=== PATIENT | male | born 1935 | race Caucasian/White ===

== ENCOUNTER 2017-01-06 12:05 | Emergency (ER) | payer MEDICARE, MEDICAID ==
[2017-01-06] MEDS ORDERED: SODIUM CHLORIDE 0.9% 1,000 ML IV ONE (12:42)
[2017-01-06] MEDS ORDERED: IOPAMIDOL-300 100 ML VIAL IVP ONE (14:37)
[2017-01-06] MEDS ORDERED: PANTOPRAZOLE 40 MG VIAL IVP STA (15:50)
[2017-01-06] MEDS ORDERED: PANTOPRAZOLE 40 MG VIAL ONE (16:31)
== END 2017-01-06 17:51 | disposition home or self-care (01) ==
DX: K27.9 Peptic ulcer, site unspecified, unspecified as acute or chronic, without hemorrhage or perforation (principal); Z79.82 Long term (current) use of aspirin; I10 Essential (primary) hypertension
CPT/HCPCS: 36415; 74177; 80053; 83690; 85025; 96374; 99283; 99284; Q9967

== ENCOUNTER 2017-01-15 11:35 | Outpatient (CLI) | payer MEDICARE, MEDICAID | END 2017-01-15 11:36 | disposition home or self-care (01) | DX: E87.1 Hypo-osmolality and hyponatremia (principal); D64.9 Anemia, unspecified ==

== ENCOUNTER 2017-02-05 12:26 | Outpatient (CLI) | payer MEDICARE, MEDICAID | END 2017-02-05 12:27 | disposition home or self-care (01) | DX: R05 Cough (principal); R06.00 Dyspnea, unspecified ==

== ENCOUNTER 2017-02-05 13:45 | Emergency (ER) | payer MEDICARE, MEDICAID ==
[2017-02-05] MEDS ORDERED: NITROGLYCERIN 2% PASTE TOP STA (13:57)
[2017-02-05] MEDS ORDERED: FUROSEMIDE 40 MG/4 ML VIAL IVP STA (13:57)
[2017-02-05] MEDS ORDERED: FUROSEMIDE 40 MG/4 ML VIAL ONE (14:09)
[2017-02-05] MEDS ORDERED: NITROGLYCERIN 2% PASTE TOP ONE (14:10)
[2017-02-05] MEDS ORDERED: IOPAMIDOL-300 100 ML VIAL IVP ONE (15:09)
== END 2017-02-05 16:11 | disposition home or self-care (01) ==
DX: I11.0 Hypertensive heart disease with heart failure (principal); I50.9 Heart failure, unspecified; I45.10 Unspecified right bundle-branch block; R94.31 Abnormal electrocardiogram [ECG] [EKG]; D64.9 Anemia, unspecified; I25.10 Atherosclerotic heart disease of native coronary artery without angina pectoris; Z95.1 Presence of aortocoronary bypass graft; Z95.5 Presence of coronary angioplasty implant and graft; I71.4 Abdominal aortic aneurysm, without rupture; I48.91 Unspecified atrial fibrillation; M19.90 Unspecified osteoarthritis, unspecified site
CPT/HCPCS: 36415; 71020; 71275; 80048; 83880; 85025; 85379; 93005; 93010; 96374; 99283; 99285; A9270; Q9967

== ENCOUNTER 2017-02-11 08:00 | Outpatient (CLI) | payer MEDICARE, MEDICAID | END 2017-02-11 08:01 | disposition home or self-care (01) | DX: E87.1 Hypo-osmolality and hyponatremia (principal); I50.9 Heart failure, unspecified; D64.9 Anemia, unspecified ==

== ENCOUNTER 2017-02-21 10:56 | Outpatient (CLI) | payer MEDICARE, MEDICAID | END 2017-02-21 10:57 | disposition home or self-care (01) | DX: I50.9 Heart failure, unspecified (principal); R01.1 Cardiac murmur, unspecified; I51.7 Cardiomegaly; I08.3 Combined rheumatic disorders of mitral, aortic and tricuspid valves ==

== ENCOUNTER 2017-03-04 09:17 | Outpatient (CLI) | payer MEDICARE, MEDICAID | END 2017-03-04 09:18 | disposition home or self-care (01) | DX: I50.9 Heart failure, unspecified (principal); E87.1 Hypo-osmolality and hyponatremia; D64.9 Anemia, unspecified ==

== ENCOUNTER 2017-03-12 14:38 | Outpatient (CLI) | payer MEDICARE, MEDICAID | END 2017-03-12 14:39 | disposition home or self-care (01) | DX: D64.9 Anemia, unspecified (principal) ==

== ENCOUNTER 2017-04-09 09:52 | Outpatient (CLI) | payer MEDICARE, MEDICAID | END 2017-04-09 09:53 | disposition home or self-care (01) | DX: I10 Essential (primary) hypertension (principal); E78.2 Mixed hyperlipidemia; Z79.899 Other long term (current) drug therapy; I25.10 Atherosclerotic heart disease of native coronary artery without angina pectoris ==

== ENCOUNTER 2017-04-10 10:38 | Emergency (ER) | payer MEDICARE, MEDICAID ==
[2017-04-10] MEDS ORDERED: METOPROLOL 5 MG/5 ML VIAL IVP STA (10:53)
--- NOTE | 2017-04-10 10:57 | ED Physician Documentation ---
PD HPI DYSPNEA - Stated complaint Stated Complaint: ABN EKG - Chief complaint Chief Complaint: Cardiac - History obtained from History obtained from: Patient, Caregiver, Other (PMD) - History of Present Illness Timing - onset: How many days ago (several) Timing - details: Waxing and waning Associated symptoms: No: Fever, Cough, Chest pain / discomfort Similar symptoms before: Has not had sx before Recently seen: Clinic (Was sent here from Dr. Hinton's office.) - Additional information Additional information: The patient is an 81-year-old male with a history of coronary artery disease and congestive heart failure, who was sent here from Dr. Hinton's office where he presented this morning with dyspnea, and was found to be in new onset atrial fibrillation/flutter. He had cough last week but not this week. He denies any chest pain, nausea, vomiting, or fever. He takes one baby aspirin daily. Review of Systems Constitutional: reports: Fatigue. denies: Fever Ears: denies: Tinnitus/ringing Nose: denies: Congestion Throat: denies: Sore throat Cardiac: denies: Chest pain / pressure Respiratory: reports: Dyspnea. denies: Cough GI: denies: Abdominal Pain, Nausea, Vomiting : denies: Dysuria Skin: denies: Rash Musculoskeletal: denies: Extremity swelling Neurologic: reports: Generalized weakness. denies: Focal weakness, Numbness, Headache PD PAST MEDICAL HISTORY - Past Medical History Cardiovascular: Congestive heart failure, Hypertension, Coronary artery disease , Atrial flutter, Other Respiratory: None Neuro: None Endocrine/Autoimmune: None Psych: Depression Musculoskeletal: Osteoarthritis Other Past Medical History: Illiterate - Past Surgical History Past Surgical History: Yes General: Other Ortho: Hip replacement Cardiovascular: CABG, Coronary stent, AAA - Present Medications Home Medications: Ambulatory Orders Medication Instructions Recorded Confirmed Multivit-Minerals/FA/Lycopene [One 1 each PO DAILY 10/31/14 04/10/17 Daily For Men Tablet] Paroxetine HCl 40 mg PO QPM 10/31/14 04/10/17 Pravastatin Sodium 80 mg PO QPM 10/31/14 04/10/17 Omeprazole [PriLOSEC] 20 mg PO DAILY #14 capsule 01/06/17 04/10/17 Furosemide [Lasix] 40 mg PO DAILY #7 tablet 02/05/17 04/10/17 Aspirin 81 mg QPM 04/10/17 04/10/17 Ferrous Gluconate 1 tab DAILY 04/10/17 04/10/17 Losartan [Cozaar] 50 mg DAILY 04/10/17 04/10/17 Metoprolol Tartrate 75 mg BID 04/10/17 04/10/17 Potassium Chloride 40 meq PO DAILY 04/10/17 04/10/17 Tamsulosin HCl [Flomax] 1 tab QPM 04/10/17 04/10/17 - Allergies Allergies/Adverse Reactions: Allergies Allergy/AdvReac Type Severity Reaction Status Date / Time Lisinopril AdvReac Unknown Unknown Uncoded 02/03/15 11:53 - Living Situation Living Arrangement: reports: At home - Social History Does the pt smoke?: No Smoking Status: Never smoker Does the pt drink ETOH?: No Does the pt have substance abuse?: No - Immunizations Immunizations are current?: Yes - POLST Patient has POLST: No PD ED PE NORMAL - Vitals Vital signs reviewed: Yes (hypertensive and mildly tachycardic.) - General General: Alert and oriented X 3, Well developed/nourished - HEENT HEENT: Atraumatic, EOMI, Pharynx benign - Neck Neck: Supple, no meningeal sign, No adenopathy, No JVD - Cardiac Cardiac: Other (Rapid rate, regular rhythm, with 2/6 systolic murmur.) - Respiratory Respiratory: Clear bilaterally, Other (Well-healed surgical abdominal scars.) - Abdomen Abdomen: Soft, Non tender - Back Back: No CVA TTP - Derm Derm: No rash - Extremities Extremities: No calf tenderness / cord, Other (Trace pedal edema.) - Neuro Neuro: Alert and oriented X 3, No motor deficit Results - Vitals Vitals: Oxygen O2 Source [] Room air O2 Source [] Room air O2 Source Room air - EKG (time done) 13:25 Rate: Rate (enter#) (99) Rhythm: Atrial flutter [place]: Normal QRS: Normal Ischemia: Normal ST segments Computer interpretation: Agree with computer 14:43 Rate: Rate (enter#) (49) Rhythm: Sinus bradycardia [place]: Normal Intervals: Normal [place] QRS: Normal Ischemia: Normal ST segments Compare to prior EKG: Changed from prior EKG (No longer in atrial flutter.) Computer interpretation: Agree with computer - Labs Labs: Laboratory Tests 04/10/17 04/10/17 04/10/17 11:05 11:05 11:05 WBC 5.2 RBC 3.65 L Hgb 9.9 L Hct 30.1 L MCV 82.4 MCH 27.3 MCHC 33.1 RDW 20.9 H Plt Count 176 MPV 7.5 Neut # 3.6 Lymph # 0.9 L [place] # 0.5 Eos # 0.1 Baso # 0.0 Absolute Nucleated RBC 0.00 Nucleated RBCs 0.0 Manual Slide Review Indicated Platelet Estimate NORMAL (130-450,000) Platelet Morphology NORMAL APPEARANCE RBC Morph Micro Appear 1+ OVALOCYTES Sodium 132 L Potassium 4.2 Chloride 95 L Carbon Dioxide 27 Anion Gap 10.0 BUN 26 H Creatinine 1.1 Estimated GFR (MDRD) 64 L Glucose 123 H Calcium 8.9 Total Bilirubin 0.8 AST 22 ALT 18 Alkaline Phosphatase 63 Troponin I < 0.04 Total Protein 7.0 Albumin 4.3 Globulin 2.7 Albumin/Globulin Ratio 1.6 Lipase 23 TSH 04/10/17 11:05 WBC RBC Hgb Hct MCV MCH MCHC RDW Plt Count MPV Neut # Lymph # [place] # Eos # Baso # Absolute Nucleated RBC Nucleated RBCs Manual Slide Review Platelet Estimate Platelet Morphology RBC Morph Micro Appear Sodium Potassium Chloride Carbon Dioxide Anion Gap BUN Creatinine Estimated GFR (MDRD) Glucose Calcium Total Bilirubin AST ALT Alkaline Phosphatase Troponin I Total Protein Albumin Globulin Albumin/Globulin Ratio Lipase TSH 1.28 - Rads (name of study) Portable CXR Radiology: Prelim report reviewed, EMP read contemporaneously, See rad report ( Minimally irregular opacities is in the left lung base and small left-sided pleural effusion.) Procedures - Cardioversion 1 Indication: Tachyarrhythmia Risks, benefits, alternatives explained to: Pt, POA Prep: IV, O2, rehab director, Pulse ox, Airway equip Meds: Propofol (70 mg), Versed (1 mg) CS via: Pads, AP approach Sync: Biphasic, 200j Post cardioversion rhythm: NSR Performed by: ED PD MEDICAL DECISION MAKING - ED course Complexity details: reviewed old records, reviewed results, re-evaluated patient , considered differential, d/w patient, d/w family, d/w PMD ED course: The patient's presentation is significant for new onset atrial flutter with 2:1 block. There is no clinical evidence to suggest myocardial ischemia, and his TSH is in the normal range at 1.28. Treatment in the emergency department included administration of metoprolol 5 mg IV. This did not change his rhythm. I discussed with him risks and benefits of cardioversion. He requested that I consult his sister who is his power of ruby rails developer. I discussed risks and benefits with her by telephone. He subsequently agreed with the proposed treatment. Following sedation with 1 mg Versed IV and 70 mg propofol IV, he underwent synchronized cardioversion at 200 J, which resulted in conversion to sinus bradycardia in the 50s. Repeat electrocardiogram reveals no evidence of myocardial ischemia on the tracing. He felt subjectively much improved following the treatment. I discussed with him and his caregiver the diagnosis, the importance of outpatient follow-up, as well as potentially worrisome signs or symptoms that should prompt reevaluation in the emergency department. Departure - Departure Disposition: 01 Home, Self Care Clinical Impression: Atrial flutter Condition: Stable Instructions: ED Paroxysmal Atrial Flutter Follow-Up: Will Hinton MD [Primary Care Provider] - Comments: Take one aspirin daily. Continue your medications as previously prescribed. Followup with your primary physician within one to 2 weeks. Call to schedule an appointment. Return to the emergency department if you develop recurrent fast heart rate, shortness of breath, or otherwise worsening symptoms. Discharge Date/Time: 04/10/17 15:55
[2017-04-10] MEDS ORDERED: METOPROLOL 5 MG/5 ML VIAL IVP ONE (11:12)
[2017-04-10 11:25] LABS: BASOPHILS % (AUTO) 0.5 %; EOSINOPHILS # (AUTO) 0.1 10^3/uL (0.0-0.7); EOSINOPHILS % (AUTO) 2.7 %; HCT - HEMATOCRIT 30.1 % (42.0-52.0); HGB - HEMOGLOBIN 9.9 g/dL (14.0-18.0); LYMPHOCYTES # (AUTO) 0.9 10^3/uL (1.5-3.5); LYMPHOCYTES % (AUTO) 17.5 %; MEAN CORPUSCULAR HEMOGLOBIN 27.3 pg (27.0-31.0); MEAN CORPUSCULAR HGB CONC 33.1 g/dL (32.0-36.0); MEAN CORPUSCULAR VOLUME 82.4 fL (80.0-94.0); MEAN PLATELET VOLUME 7.5 fL (7.4-11.4); MONOCYTES # (AUTO) 0.5 10^3/uL (0.0-1.0); MONOCYTES % (AUTO) 9.7 %; NEUTROPHILS # (AUTO) 3.6 10^3/uL (1.5-6.6); NEUTROPHILS % (AUTO) 69.6 %; RED BLOOD COUNT 3.65 10^6/uL (4.70-6.10); RED CELL DISTRIBUTION WIDTH 20.9 % (12.0-15.0); UNCORRECTED WHITE BLOOD COUNT 5.2 x10^3/uL; WHITE BLOOD COUNT 5.2 x10^3/uL (4.8-10.8)
[2017-04-10 11:33] LABS: ALBUMIN/GLOBULIN RATIO 1.6 (1.0-2.2); BILIRUBIN,TOTAL 0.8 mg/dL (0.2-1.0); CALCIUM 8.9 mg/dL (8.5-10.3); CREATININE 1.1 mg/dL (0.6-1.2); POTASSIUM 4.2 mmol/L (3.5-5.0)
[2017-04-10 11:52] LABS: PLATELET ESTIMATE, MANUAL NORMAL (130-450,000) (NORMAL); PLATELET MORPHOLOGY NORMAL APPEARANCE (NORMAL)
[2017-04-10] MEDS ORDERED: MIDAZOLAM 2 MG/2 ML VIAL IVP STA (14:12)
[2017-04-10] MEDS ORDERED: PROPOFOL 200 MG/20 ML VIAL IVP STA (14:12)
--- NOTE | 2017-04-10 14:12 | XRAY Preliminary Report ---
Exam: XR Chest 1 View IMPRESSION: Minimally irregular opacities in left lung base and small left sided pleural effusion. [facility] SITE ID: [id number]
--- NOTE | 2017-04-10 14:15 | XRAY Report ---
EXAM: CHEST RADIOGRAPHY EXAM DATE: 04/10/2017 01:52 PM. CLINICAL HISTORY: Dyspnea. COMPARISON: None. TECHNIQUE: 1 view. FINDINGS: Lungs/Pleura: Several irregular opacities in left lung base is small left-sided pleural effusion. No pneumothorax. Mediastinum: The patient is status post median sternotomy and CABG. Left heart border silhouetted by the adjacent airspace process. The pulmonary vasculature is within normal limits. Other: None. IMPRESSION: Minimally irregular opacities in left lung base and small left sided pleural effusion. [facility] Referring Provider Line: [phone] SITE ID: [id number]
[2017-04-10] MEDS ORDERED: MIDAZOLAM 2 MG/2 ML VIAL ONE (14:16)
[2017-04-10] MEDS ORDERED: PROPOFOL 200 MG/20 ML VIAL IVP ONE (14:17)
[2017-04-10] MEDS ORDERED: SODIUM CHLORIDE 0.9% 1,000 ML IV ONE (14:49)
[2017-04-10 15:04] VITALS: BP 126/52
== END 2017-04-10 15:55 | disposition home or self-care (01) ==
LOC: ED 10:38
DX: I48.92 Unspecified atrial flutter (principal); I45.10 Unspecified right bundle-branch block; R94.31 Abnormal electrocardiogram [ECG] [EKG]; I11.0 Hypertensive heart disease with heart failure; I50.9 Heart failure, unspecified; I25.10 Atherosclerotic heart disease of native coronary artery without angina pectoris; M19.90 Unspecified osteoarthritis, unspecified site; Z79.82 Long term (current) use of aspirin
CPT/HCPCS: 36415; 71010; 80053; 83690; 84443; 84484; 85025; 92960; 93005; 93010; 96374; 96375; 99152; 99284

== ENCOUNTER 2018-01-26 08:00 | Outpatient (CLI) | payer MEDICARE, MEDICAID ==
[2018-01-26 18:19] LABS: CALCIUM 8.5 mg/dL (8.5-10.3); CREATININE 1.1 mg/dL (0.6-1.2)
== END 2018-01-26 08:01 | disposition home or self-care (01) ==
LOC: LAB.R 08:00
PROVIDERS: ATTEND Internal Medicine
DX: I50.9 Heart failure, unspecified (principal)
CPT/HCPCS: 80048; 83880

== ENCOUNTER 2018-01-30 12:39 | Outpatient (CLI) | payer MEDICARE, MEDICAID | END 2018-01-30 12:40 | disposition home or self-care (01) | LOC: DI 12:39 | PROVIDERS: ATTEND Internal Medicine | DX: I50.9 Heart failure, unspecified (principal); I08.3 Combined rheumatic disorders of mitral, aortic and tricuspid valves; I27.20 Pulmonary hypertension, unspecified | CPT/HCPCS: 93306 ==

== ENCOUNTER 2018-02-13 08:00 | Outpatient (CLI) | payer MEDICARE, MEDICAID ==
[2018-02-13 13:26] LABS: CREATININE 0.9 mg/dL (0.6-1.2)
== END 2018-02-13 08:01 | disposition home or self-care (01) ==
LOC: LAB.R 08:00
PROVIDERS: ATTEND Internal Medicine
DX: I50.9 Heart failure, unspecified (principal)
CPT/HCPCS: 80048

== ENCOUNTER 2018-05-13 08:00 | Outpatient (CLI) | payer MEDICARE, MEDICAID ==
[2018-05-13 12:32] LABS: BASOPHILS % (AUTO) 0.4 %; EOSINOPHILS # (AUTO) 0.2 10^3/uL (0.0-0.7); EOSINOPHILS % (AUTO) 3.3 %; HGB - HEMOGLOBIN 11.8 g/dL (14.0-18.0); LYMPHOCYTES # (AUTO) 0.9 10^3/uL (1.5-3.5); LYMPHOCYTES % (AUTO) 16.3 %; MEAN CORPUSCULAR HEMOGLOBIN 34.1 pg (27.0-31.0); MEAN CORPUSCULAR VOLUME 100.5 fL (80.0-94.0); MEAN PLATELET VOLUME 8.5 fL (7.4-11.4); MONOCYTES # (AUTO) 0.3 10^3/uL (0.0-1.0); MONOCYTES % (AUTO) 6.2 %; NEUTROPHILS # (AUTO) 4.2 10^3/uL (1.5-6.6); NEUTROPHILS % (AUTO) 73.8 %; PLT - PLATELET COUNT 161 10^3/uL (130-450); RED BLOOD COUNT 3.45 10^6/uL (4.70-6.10); WHITE BLOOD COUNT 5.6 x10^3/uL (4.8-10.8)
[2018-05-13 12:42] LABS: ALBUMIN 3.8 g/dL (3.2-5.5); ALBUMIN/GLOBULIN RATIO 1.1 (1.0-2.2); ALKALINE PHOSPHATASE 53 IU/L (42-121); ALT ALANINE AMINOTRANSFERASE 16 IU/L (10-60); AST ASPARTATE AMINOTRANSFERASE 21 IU/L (10-42); BILIRUBIN,TOTAL 1.1 mg/dL (0.2-1.0); BUN - BLOOD UREA NITROGEN 22 mg/dL (6-20); CALCIUM 8.7 mg/dL (8.5-10.3); CARBON DIOXIDE - CO2 29 mmol/L (21-32); CHLORIDE 100 mmol/L (101-111); CHOL/HDL RATIO 3.7 (<5.0); CHOLESTEROL 134 mg/dL; GFR - MDRD 71 (>89); GLUCOSE 131 mg/dL (70-100); HDL CHOLESTEROL 36 mg/dL; LDL CHOLESTEROL,CALCULATED 77 mg/dL; LDL/HDL RATIO 2.1 (<3.6); SODIUM 137 mmol/L (135-145); TOTAL PROTEIN 7.4 g/dL (6.7-8.2); VLDL CHOLESTEROL 21 mg/dL
== END 2018-05-13 08:01 ==
LOC: LAB.N 08:00
PROVIDERS: ATTEND Internal Medicine
DX: I50.9 Heart failure, unspecified (principal); I25.10 Atherosclerotic heart disease of native coronary artery without angina pectoris; E78.5 Hyperlipidemia, unspecified; I10 Essential (primary) hypertension
CPT/HCPCS: 36415; 80053; 80061; 83721; 84443; 85025

== ENCOUNTER 2018-05-19 12:40 | Outpatient (CLI) | payer MEDICARE, MEDICAID | END 2018-05-19 12:41 | disposition home or self-care (01) | LOC: DI 12:40 | PROVIDERS: ATTEND Internal Medicine | DX: I48.91 Unspecified atrial fibrillation (principal); I08.3 Combined rheumatic disorders of mitral, aortic and tricuspid valves; I27.20 Pulmonary hypertension, unspecified | CPT/HCPCS: 93306 ==

== ENCOUNTER 2018-07-06 15:03 | Outpatient (CLI) | payer MEDICARE, MEDICAID ==
[2018-07-06 13:16] LABS: CALCIUM 9.1 mg/dL (8.5-10.3); CREATININE 1.1 mg/dL (0.6-1.2)
== END 2018-07-06 15:04 | disposition home or self-care (01) ==
LOC: LAB.N 15:03
PROVIDERS: ATTEND Internal Medicine
DX: I50.9 Heart failure, unspecified (principal)
CPT/HCPCS: 36415; 80048; 83880

== ENCOUNTER 2019-01-12 08:00 | Outpatient (CLI) | payer MEDICARE, MEDICAID ==
[2019-01-12 14:06] LABS: CREATININE 1.5 mg/dL (0.6-1.2)
== END 2019-01-12 23:59 | disposition home or self-care (01) ==
LOC: LAB.R 08:00
PROVIDERS: ATTEND Internal Medicine
DX: I50.9 Heart failure, unspecified (principal)
CPT/HCPCS: 80048

== ENCOUNTER 2019-05-25 13:27 | Outpatient (CLI) | payer MEDICARE, MEDICAID ==
[2019-05-25 13:26] LABS: BASOPHILS % (AUTO) 0.2 %; EOSINOPHILS # (AUTO) 0.1 10^3/uL (0.0-0.7); EOSINOPHILS % (AUTO) 2.8 %; HGB - HEMOGLOBIN 8.4 g/dL (14.0-18.0); LYMPHOCYTES # (AUTO) 0.8 10^3/uL (1.5-3.5); LYMPHOCYTES % (AUTO) 17.5 %; MEAN CORPUSCULAR HEMOGLOBIN 30.8 pg (27.0-31.0); MEAN CORPUSCULAR HGB CONC 31.1 g/dL (32.0-36.0); MEAN CORPUSCULAR VOLUME 98.9 fL (80.0-94.0); MEAN PLATELET VOLUME 9.3 fL (7.4-11.4); MONOCYTES # (AUTO) 0.4 10^3/uL (0.0-1.0); MONOCYTES % (AUTO) 9.3 %; NEUTROPHILS # (AUTO) 3.2 10^3/uL (1.5-6.6); NEUTROPHILS % (AUTO) 69.8 %; PLT - PLATELET COUNT 148 10^3/uL (130-450); RED BLOOD COUNT 2.73 10^6/uL (4.70-6.10); RED CELL DISTRIBUTION WIDTH 17.4 % (12.0-15.0); WHITE BLOOD COUNT 4.6 x10^3/uL (4.8-10.8)
[2019-05-25 13:35] LABS: CALCIUM 8.1 mg/dL (8.5-10.3); CREATININE 1.5 mg/dL (0.6-1.2)
[2019-05-25 13:51] LABS: T4 (THYROXINE) 7.64 ug/dL (6.09-12.23)
[2019-05-25 13:56] LABS: THYROID STIMULATING HORMONE 1.97 uIU/mL (0.34-5.60)
--- NOTE | 2019-05-25 16:47 | XRAY Report ---
Reason: CHF, A-Fib Procedure Date: 05/25/2019 Accession Number: [id number] / [id number] Procedure: XR - Chest 1 View X-Ray CPT Code: 28708 FULL RESULT: EXAM: CHEST RADIOGRAPHY EXAM DATE: 05/25/2019 01:57 PM. CLINICAL HISTORY: CHF, A-Fib. Difficulty breathing COMPARISON: 05/04/2014 and 02/05/2017. TECHNIQUE: 1 view. FINDINGS: Lungs/Pleura: Chronic left lateral whole home pleural thickening and CP angle blunting, likely chronic scarring. No right effusion. No pneumothorax. Minor chronic increased retrocardiac density. Lungs otherwise clear. Mediastinum: Status post sternotomy and coronary artery bypass graft with normal heart size. Other: Suspect aortic graft upper abdomen. Mild degenerative change in the spine. IMPRESSION: No acute findings. Similar in appearance to 02/05/2017. [facility]
== END 2019-05-25 13:28 | disposition home or self-care (01) ==
LOC: DI 13:27
PROVIDERS: ATTEND Family Medicine
DX: I50.9 Heart failure, unspecified (principal); I48.91 Unspecified atrial fibrillation; I35.0 Nonrheumatic aortic (valve) stenosis; I27.20 Pulmonary hypertension, unspecified
CPT/HCPCS: 36415; 71045; 80048; 83880; 84436; 84443; 84481; 85025

== ENCOUNTER 2019-05-26 09:05 | Outpatient (CLI) | payer MEDICARE, MEDICAID | END 2019-05-26 09:06 | disposition short-term general hospital (02) | LOC: EMS 09:05 | PROVIDERS: ATTEND Surgery | DX: S09.90XA Unspecified injury of head, initial encounter (principal); R10.9 Unspecified abdominal pain; R53.1 Weakness; W01.10XA Fall on same level from slipping, tripping and stumbling with subsequent striking against unspecified object, initial encounter; Y92.003 Bedroom of unspecified non-institutional (private) residence as the place of occurrence of the external cause | CPT/HCPCS: A0425; A0429 ==

== ENCOUNTER 2019-06-02 01:12 | Outpatient (CLI) | payer MEDICARE, MEDICAID | END 2019-06-02 01:13 | disposition EMS.NT | LOC: EMS 01:12 | PROVIDERS: ATTEND Surgery | DX: R29.6 Repeated falls (principal) ==

== ENCOUNTER 2019-06-16 06:47 | Outpatient (CLI) | payer MEDICARE, MEDICAID | END 2019-06-16 06:48 | disposition critical access hospital (66) | LOC: EMS 06:47 | PROVIDERS: ATTEND Surgery | DX: S09.90XA Unspecified injury of head, initial encounter (principal); W06.XXXA Fall from bed, initial encounter; Y92.003 Bedroom of unspecified non-institutional (private) residence as the place of occurrence of the external cause; Z79.01 Long term (current) use of anticoagulants | CPT/HCPCS: A0425; A0429 ==

== ENCOUNTER 2019-06-16 07:14 | Emergency (ER) | payer MEDICARE, MEDICAID ==
--- NOTE | 2019-06-16 07:24 | ED Physician Documentation ---
History of Present Illness - Stated complaint Stated Complaint: GLF - History obtained from History obtained from: Patient - History of Present Illness Timing: Prior to arrival - Additonal information Additional information: Patient is an 83-year-old male with anticoagulation of Xarelto presenting from home after his caregiver found him on the ground. It is unsure how long he was there. Patient reports that he fell out of bed last night, but denies any injuries including headache, neck pain, back pain, chest pain, difficulty breathing, abdominal pain, nausea, vomiting, urinary changes or stool changes. Patient reports that he was otherwise at his normal state of health. No other improving or worsening factors. Review of Systems Cardiac: denies: Chest pain / pressure Respiratory: denies: Dyspnea GI: denies: Abdominal Pain, Nausea, Vomiting, Diarrhea : denies: Dysuria Skin: reports: Abrasion (s) Musculoskeletal: denies: Neck pain, Back pain, Extremity pain Neurologic: denies: Focal weakness, Numbness, Headache, Head injury PD PAST MEDICAL HISTORY - Past Medical History Past Medical History: Yes Cardiovascular: Congestive heart failure, Hypertension, Coronary artery disease, Atrial flutter, Other Respiratory: None Endocrine/Autoimmune: None Psych: Depression Musculoskeletal: Osteoarthritis - Past Surgical History Past Surgical History: Yes General: Other Ortho: Hip replacement Cardiovascular: CABG, Coronary stent, AAA - Present Medications Home Medications: Ambulatory Orders Medication Instructions Recorded Confirmed Multivit-Minerals/FA/Lycopene [One 1 each PO DAILY 10/31/14 04/10/17 Daily For Men Tablet] PARoxetine HCl [Paroxetine HCl] 40 mg PO QPM 10/31/14 04/10/17 Pravastatin Sodium 80 mg PO QPM 10/31/14 04/10/17 Omeprazole [PriLOSEC] 20 mg PO DAILY #14 capsule 01/06/17 04/10/17 Losartan [Cozaar] 50 mg DAILY 04/10/17 04/10/17 Metoprolol Tartrate 75 mg BID 04/10/17 04/10/17 Potassium Chloride 40 meq PO DAILY 04/10/17 04/10/17 Tamsulosin HCl [Flomax] 1 tab QPM 04/10/17 04/10/17 Azithromycin 250 mg PO DAILY #4 tablet 06/16/19 Diltiazem HCl [Dilt-Xr] 120 mg PO 06/16/19 Liothyronine Sodium 5 mcg PO 06/16/19 06/16/19 Rivaroxaban [Xarelto] 20 mg PO 06/16/19 06/16/19 Torsemide 20 mg PO DAILY 06/16/19 06/16/19 - Allergies Allergies/Adverse Reactions: Allergies Allergy/AdvReac Type Severity Reaction Status Date / Time Lisinopril AdvReac Unknown Unknown Uncoded 06/16/19 07:21 - Social History Does the pt smoke?: No Smoking Status: Never smoker Does the pt drink ETOH?: No Does the pt have substance abuse?: No - Immunizations Immunizations are current?: Yes - POLST Patient has POLST: No PD ED PE NORMAL - Vitals Vital signs reviewed: Yes - General General: Alert and oriented X 3, No acute distress, Well developed/nourished - HEENT HEENT: Atraumatic, PERRL, EOMI, Moist mucous membranes, Pharynx benign. No: Dentition benign (No teeth in place) - Neck Neck: No bony TTP (C collar in place) - Cardiac Cardiac: RRR, No murmur - Respiratory Respiratory: No respiratory distress, Clear bilaterally - Abdomen Abdomen: Normal bowel sounds, Soft, Non tender, Non distended - Back Back: No spinal TTP - Derm Derm: Warm and dry, No rash, Other (Multiple scattered bruises of variable age over extremities and directly below the left eye. Areas of weeping to bilateral shins with 1+ pedal edema) - Extremities Extremities: No deformity, No tenderness to palpate. No: No edema - Neuro Neuro: Alert and oriented X 3, No motor deficit, No sensory deficit - Psych Psych: Normal mood, Normal affect Results - Vitals Vitals: Vital Signs - 24 hr 06/16/19 06/16/19 07:18 09:21 Temperature 35.6 C L Heart Rate 100 96 Respiratory 18 17 Rate Blood Pressure 122/84 H 128/91 H O2 Saturation 92 96 Oxygen O2 Source [] Room air O2 Source [] Room air O2 Source Room air - EKG (time done) 0746 Rate: Rate (enter#) (99) Rhythm: Atrial fibrillation Intervals: Prolonged QT, RBBB Compare to prior EKG: Unchanged from prior EKG - Labs Labs: Laboratory Tests 06/16/19 06/16/19 06/16/19 07:24 07:24 07:24 WBC 4.9 RBC 2.62 L Hgb 7.9 L Hct 26.0 L MCV 99.2 H MCH 30.2 MCHC 30.4 L RDW 17.3 H Plt Count 142 MPV 9.6 Neut # (Auto) 3.8 Lymph # (Auto) 0.6 L [place] # (Auto) 0.4 Eos # (Auto) 0.1 Baso # (Auto) 0.0 Absolute Nucleated RBC 0.00 Nucleated RBC % 0.0 Sodium 139 Potassium 4.6 Chloride 102 Carbon Dioxide 23 Anion Gap 14.0 H BUN 29 H Creatinine 1.4 H Estimated GFR (MDRD) 48 L Glucose 139 H Calcium 8.5 Total Bilirubin 1.1 H AST 27 ALT 21 Alkaline Phosphatase 88 Total Creatine Kinase 91 Troponin I < 0.04 Troponin I High Sens 10.7 Total Protein 6.9 Albumin 3.5 Globulin 3.4 Albumin/Globulin Ratio 1.0 Lipase 26 Urine Color Urine Clarity Urine pH Ur Specific [place] Urine Protein Urine Glucose (UA) Urine Ketones Urine Occult Blood Urine Nitrite Urine Bilirubin Urine Urobilinogen Ur Leukocyte Esterase Ur Microscopic Review Urine Culture Comments 06/16/19 10:55 WBC RBC Hgb Hct MCV MCH MCHC RDW Plt Count MPV Neut # (Auto) Lymph # (Auto) [place] # (Auto) Eos # (Auto) Baso # (Auto) Absolute Nucleated RBC Nucleated RBC % Sodium Potassium Chloride Carbon Dioxide Anion Gap BUN Creatinine Estimated GFR (MDRD) Glucose Calcium Total Bilirubin AST ALT Alkaline Phosphatase Total Creatine Kinase Troponin I Troponin I High Sens Total Protein Albumin Globulin Albumin/Globulin Ratio Lipase Urine Color DARK YELLOW Urine Clarity CLEAR Urine pH 6.0 Ur Specific [place] 1.010 Urine Protein NEGATIVE Urine Glucose (UA) NEGATIVE Urine Ketones NEGATIVE Urine Occult Blood NEGATIVE Urine Nitrite NEGATIVE Urine Bilirubin NEGATIVE Urine Urobilinogen 1 (NORMAL) Ur Leukocyte Esterase NEGATIVE Ur Microscopic Review NOT INDICATED Urine Culture Comments NOT INDICATED PD MEDICAL DECISION MAKING - ED course Complexity details: reviewed results, re-evaluated patient, considered differential, d/w patient ED course: Patient presenting after being found down by his caregiver. Patient does report fall, but denies particular injury or complaint. Patient has multiple areas of ecchymosis over his body and face that are of variable age. Patient does admit to recurrent falls. No obvious signs of new trauma from today, as well as any changes in neurological deficits or systemic illness. Imaging obtained of head and cervical spine, as well as chest x-ray. Imaging returned without obvious acute findings except for possible pneumonia and mild compression fracture of T3, however, patient has had recurrent falls and unsure if this is related to today's fall. Patient has no tenderness over this area and do not feel he requires emergent hospitalization consult for this, but advised of finding and recommended appropriate follow-up. Patient also provided with printouts of his radiology reads. Patient started on antibiotics for pneumonia in the ED. EKG and cardiac enzymes obtained which did not reflect ischemia. Have low suspicion for ACS, SC, unstable angina, dissection, aneurysm at this time. Screening lab work also relatively unremarkable except for showing changes of age and underlying disease processes such as slightly decreased H&H and increased creatinine, although similar to previous measurements. CK within normal do not feel patient is suffering from rhabdomyolysis. Urinalysis unremarkable.Patient able to ambulate appropriately throughout the ED. Feel that he is safe to discharge home with oral antibiotics for pneumonia, close primary care follow- up, strict return precautions. Patient voiced understanding and is comfortable with discharge plan. Departure - Departure Disposition: 01 Home, Self Care Clinical Impression: Compression fracture Pneumonia Qualifiers: Pneumonia type: due to unspecified organism Laterality: unspecified laterality Lung location: unspecified part of lung Qualified Code(s): J18.9 - Pneumonia, unspecified organism Condition: Good Instructions: ED Pneumonia Adult, ED Fx Comp Vertebral Follow-Up: Jaden Lovell MD [Primary Care Provider] - Prescriptions: Azithromycin 250 mg PO DAILY #4 tablet Comments: Please continue all home medications as previously instructed. Please take antibiotics as prescribed to treat pneumonia. Please start taking antibiotics tomorrow as you received your first dose in the ED for today. Recommend close follow-up with your primary care physician in next 2 to 3 days and return to ED sooner if you experience a fall, worsening symptoms, or have other concerns.
[2019-06-16] MEDS ORDERED: SODIUM CHLORIDE 0.9% 500 ML IV ONE (07:26)
[2019-06-16 07:34] LABS: EOSINOPHILS # (AUTO) 0.1 10^3/uL (0.0-0.7); EOSINOPHILS % (AUTO) 1.4 %; HGB - HEMOGLOBIN 7.9 g/dL (14.0-18.0); LYMPHOCYTES # (AUTO) 0.6 10^3/uL (1.5-3.5); LYMPHOCYTES % (AUTO) 12.6 %; MEAN CORPUSCULAR HEMOGLOBIN 30.2 pg (27.0-31.0); MEAN CORPUSCULAR HGB CONC 30.4 g/dL (32.0-36.0); MEAN CORPUSCULAR VOLUME 99.2 fL (80.0-94.0); MEAN PLATELET VOLUME 9.6 fL (7.4-11.4); MONOCYTES # (AUTO) 0.4 10^3/uL (0.0-1.0); MONOCYTES % (AUTO) 7.5 %; NEUTROPHILS # (AUTO) 3.8 10^3/uL (1.5-6.6); NEUTROPHILS % (AUTO) 78.1 %; PLT - PLATELET COUNT 142 10^3/uL (130-450); RED BLOOD COUNT 2.62 10^6/uL (4.70-6.10); RED CELL DISTRIBUTION WIDTH 17.3 % (12.0-15.0); WHITE BLOOD COUNT 4.9 x10^3/uL (4.8-10.8)
[2019-06-16 07:47] LABS: ALBUMIN 3.5 g/dL (3.2-5.5); BILIRUBIN,TOTAL 1.1 mg/dL (0.2-1.0); CALCIUM 8.5 mg/dL (8.5-10.3); CREATININE 1.4 mg/dL (0.6-1.2); TOTAL PROTEIN 6.9 g/dL (6.7-8.2)
[2019-06-16 07:57] LABS: TROPONIN I < 0.04 ng/mL (<0.49)
--- NOTE | 2019-06-16 07:58 | CT Report ---
Reason: fall, found down by caregiver Procedure Date: 06/16/2019 Accession Number: [id number] / [id number] Procedure: CT - HEAD WO CPT Code: FULL RESULT: EXAM: CT HEAD EXAM DATE: 06/16/2019 07:42 AM. CLINICAL HISTORY: Fall, found down by caregiver. COMPARISON: None. TECHNIQUE: Multiaxial CT images were obtained from the foramen magnum to the vertex. Reformats: Sagittal and coronal. IV contrast: None. In accordance with CT protocol optimization, one or more of the following dose reduction techniques were utilized for this exam: automated exposure control, adjustment of mA and/or KV based on patient size, or use of iterative reconstructive technique. FINDINGS: Parenchyma: No evidence of an acute vascular insult or acute parenchymal hemorrhage. Small remote right cerebellar hemisphere infarcts. Parenchymal volume loss from periventricular regions of low attenuation. No midline shift. No mass-effect Extraaxial Spaces: Extra-axial spaces are prominent. No subdural or epidural collections identified. Ventricles: The ventricles are enlarged although symmetric. Sinuses and Orbits: Imaged paranasal sinuses, orbits, and mastoids show no significant abnormality. Bones: No acute fracture or bony lesion is identified. Other: Changes are seen from bilateral lens surgery. Otherwise, globes and orbits are unremarkable. Vascular calcifications. IMPRESSION: 1. No acute intracranial abnormality is identified. 2. No acute fracture. 3. Parenchymal volume loss and chronic white matter changes. Remote right cerebellar hemisphere infarcts. [facility]
--- NOTE | 2019-06-16 08:03 | XRAY Report ---
Reason: chest pain Procedure Date: 06/16/2019 Accession Number: [id number] / [id number] Procedure: XR - Chest 1 View X-Ray CPT Code: 55132 FULL RESULT: EXAM: CHEST RADIOGRAPHY EXAM DATE: 06/16/2019 07:44 AM. CLINICAL HISTORY: Chest pain. COMPARISON: Chest radiograph from 05/25/2019, 04/10/2017, 02/05/2017. CTA chest from 02/05/2017. TECHNIQUE: 1 view. FINDINGS: Lungs/Pleura: There is increased opacity in the left base. On previous examinations, chronic left pleural effusion/pleural thickening is demonstrated. Diffuse hazy opacities are present elsewhere in both lungs. There also appears to be a 10 mm nodular opacity overlying the right lung base, also partially overlying the right posterior seventh rib. No right pleural effusion is demonstrated. No pneumothorax. Mediastinum: There is prominence of the cardia mediastinal contour, which is similar to the prior examination. There is partial obscuration of the left heart border. Pulmonary vasculature is engorged and indistinct. Other: Multiple mediastinal surgical clips are present. Sternal wires are noted. Multiple old right posterior rib fractures are noted. IMPRESSION: 1. Increasing left basilar opacity, concerning for aspiration or pneumonia. 2. Suspect left pleural effusion. 3. Small nodular opacity overlying the right lung base may represent pulmonary nodule or artifact from overlying soft tissue or osseous density. Suggest follow-up chest CT, which can be performed on a nonemergent basis following resolution of acute symptoms. 4. Findings suggesting superimposed mild CHF/fluid overload. [facility]
--- NOTE | 2019-06-16 08:06 | CT Report ---
Reason: fall, found down by caregiver Procedure Date: 06/16/2019 Accession Number: [id number] / [id number] Procedure: CT - CERVICAL SPINE WO CPT Code: FULL RESULT: EXAM: CT CERVICAL SPINE WITHOUT CONTRAST DATE: 06/16/2019 07:42 AM. HISTORY: Fall, found down by caregiver. COMPARISONS: None. TECHNIQUE: Thin-section axial images were acquired of the cervical spine without contrast. Post-processing: Coronal and sagittal reformats. Other: None. In accordance with CT protocol optimization, one or more of the following dose reduction techniques were utilized for this exam: automated exposure control, adjustment of mA and/or KV based on patient size, or use of iterative reconstructive technique. FINDINGS: Alignment: Slight levoscoliosis of the cervical spine. Grade 1 anterolisthesis of C6 on C7. Articular facets are normally aligned. Occipital condyles normally aligned. Bones: Superior endplate T3 compression fracture with approximately 10-20% loss of vertebral body height. Degenerative osteophyte formation. Subchondral cystic change and/or erosive changes noted in the odontoid. Pannus formation surrounding the odontoid. Interspace Levels/Facets: C1-C2: Degenerative changes of the anterior arch of C1 and the dens. C2-C3: Disk osteophyte complex. Central canal narrowing. Facet arthropathy. Mild to moderate bilateral neural foraminal narrowing. C3-C4: Near complete intervertebral disk fusion. Uncovertebral hypertrophy. Mild to moderate central canal narrowing. Facet arthropathy. Severe right and moderate left neural foraminal narrowing. C4-C5: Disk space narrowing. Osteophyte formation. Uncovertebral hypertrophy. Broad-based disk osteophyte complex. Mild to moderate central canal narrowing. Facet arthropathy. Mild to moderate right and mild left neural foraminal narrowing. C5-C6: Moderate central canal narrowing. Broad-based central and right paracentral disk osteophyte complex. Uncovertebral hypertrophy. Facet arthropathy. Severe right and mild left neural foraminal narrowing. C6-C7: Disk space narrowing. Osteophyte formation . Disk osteophyte complex. Facet arthropathy. Mild to moderate central canal narrowing. Moderate left and severe right neural foraminal narrowing. C7-T1: Disk space narrowing. Osteophyte formation. Facet arthropathy. Mild bilateral neural foraminal narrowing. Musculature: Normal. No fatty atrophy. Other: The paravertebral and prevertebral soft tissues are unremarkable. Mild septal thickening in the lung apices. Airways are clear. Vascular calcifications. Subcentimeter superior right paratracheal lymph nodes. Thyroid gland is heterogeneous. No enlarged cervical lymph nodes. Skull base is unremarkable. IMPRESSION: 1. Mild superior endplate T3 compression deformity. 2. Degenerative changes of the cervical spine. [facility]
[2019-06-16] MEDS ORDERED: LIDOCAINE 1% 2 ML VIAL MC ONE (08:22)
[2019-06-16] MEDS ORDERED: cefTRIAXone 1 GM VIAL IM STA (08:22)
[2019-06-16] MEDS ORDERED: AZITHROMYCIN 250 MG TABLET PO STA (08:23)
[2019-06-16 11:28] LABS: BILIRUBIN,URINE NEGATIVE (NEGATIVE); GLUCOSE, URINE (UA) NEGATIVE (NEGATIVE); KETONES,URINE (UA) NEGATIVE (NEGATIVE); LEUKOCYTE ESTERASE, URINE NEGATIVE (NEGATIVE); NITRITE,URINE NEGATIVE (NEGATIVE); OCCULT BLOOD,URINE NEGATIVE (NEGATIVE); PROTEIN,URINE NEGATIVE (NEGATIVE); UROBILINOGEN,URINE 1 (NORMAL) E.U./dL (NORMAL)
[2019-06-16 11:29] LABS: CLARITY,URINE CLEAR (CLEAR)
[2019-06-16 13:24] VITALS: BP 126/84
== END 2019-06-16 13:21 | disposition home or self-care (01) ==
LOC: EDUNIT# → ED 07:14
DX: S22.030A Wedge compression fracture of third thoracic vertebra, initial encounter for closed fracture (principal); W06.XXXA Fall from bed, initial encounter; Y92.003 Bedroom of unspecified non-institutional (private) residence as the place of occurrence of the external cause; Z91.81 History of falling; J18.9 Pneumonia, unspecified organism; Z79.01 Long term (current) use of anticoagulants; I48.91 Unspecified atrial fibrillation; I45.81 Long QT syndrome; I45.10 Unspecified right bundle-branch block; I11.0 Hypertensive heart disease with heart failure; I50.9 Heart failure, unspecified; M48.02 Spinal stenosis, cervical region
CPT/HCPCS: 36415; 70450; 71045; 72125; 80053; 81003; 82550; 83690; 84484; 85025; 93005; 96372; 99283; 99284; A9270; 81001; 87086

== ENCOUNTER 2019-06-22 06:53 | Outpatient (CLI) | payer MEDICARE, MEDICAID | END 2019-06-22 06:54 | disposition EMS.NT | LOC: EMS 06:53 | PROVIDERS: ATTEND Surgery | DX: Z03.89 Encounter for observation for other suspected diseases and conditions ruled out (principal) ==

== ENCOUNTER 2019-06-24 09:42 | Emergency (ER) | payer MEDICARE, MEDICAID ==
[2019-06-24 10:00] VITALS: BP 110/60
[2019-06-24] MEDS ORDERED: BACITRACIN OINT TOP STA (10:44)
--- NOTE | 2019-06-24 10:46 | ED Physician Documentation ---
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 He was walking behind his wheeled walker when he stumbled and fell forward, cutting the palm of his right hand on the arm of his wheeled walker. He is right-hand dominant. He denies any other injuries. He is on Xarelto for atrial flutter. Tetanus status is up-to-date. Review of Systems Cardiac: denies: Chest pain / pressure Respiratory: denies: Dyspnea, Cough Skin: reports: Laceration (s) Musculoskeletal: reports: Extremity pain (right hand) Neurologic: denies: Focal weakness, Numbness, Head injury PD PAST MEDICAL HISTORY - Past Medical History Cardiovascular: Congestive heart failure, Hypertension, Coronary artery disease, Atrial flutter, Other Respiratory: None Endocrine/Autoimmune: None Psych: Depression Musculoskeletal: Osteoarthritis - Past Surgical History Past Surgical History: Yes General: Other Ortho: Hip replacement Cardiovascular: CABG, Coronary stent, AAA - Present Medications Home Medications: Ambulatory Orders Medication Instructions Recorded Confirmed Multivit-Minerals/FA/Lycopene [One 1 each PO DAILY 10/31/14 04/10/17 Daily For Men Tablet] PARoxetine HCl [Paroxetine HCl] 40 mg PO QPM 10/31/14 04/10/17 Pravastatin Sodium 80 mg PO QPM 10/31/14 04/10/17 Omeprazole [PriLOSEC] 20 mg PO DAILY #14 capsule 01/06/17 04/10/17 Losartan [Cozaar] 50 mg DAILY 04/10/17 04/10/17 Metoprolol Tartrate 75 mg BID 04/10/17 04/10/17 Potassium Chloride 40 meq PO DAILY 04/10/17 04/10/17 Tamsulosin HCl [Flomax] 1 tab QPM 04/10/17 04/10/17 Azithromycin 250 mg PO DAILY #4 tablet 06/16/19 Diltiazem HCl [Dilt-Xr] 120 mg PO 06/16/19 Liothyronine Sodium 5 mcg PO 06/16/19 06/16/19 Rivaroxaban [Xarelto] 20 mg PO 06/16/19 06/16/19 Torsemide 20 mg PO DAILY 06/16/19 06/16/19 - Allergies Allergies/Adverse Reactions: Allergies Allergy/AdvReac Type Severity Reaction Status Date / Time Lisinopril AdvReac Unknown Unknown Uncoded 06/24/19 10:00 - Social History Does the pt smoke?: No Smoking Status: Never smoker Does the pt drink ETOH?: No Does the pt have substance abuse?: No - Immunizations Immunizations are current?: Yes - POLST Patient has POLST: No PD ED PE NORMAL - Vitals Vital signs reviewed: Yes (normal) - General General: Alert and oriented X 3, Well developed/nourished - HEENT HEENT: Atraumatic - Neck Neck: No bony TTP - Cardiac Cardiac: RRR - Respiratory Respiratory: No respiratory distress - Back Back: No spinal TTP - Derm Derm: No rash - Extremities Extremities: Other (There is a 2 cm irregular laceration on the ulnar palmar aspect of the right hand. Flexion and extension of all digits. Distal neurovascular is intact.) - Neuro Neuro: Alert and oriented X 3, No motor deficit, Normal speech Results - Vitals Vitals: Vital Signs - 24 hr 06/24/19 09:57 Temperature 36.0 C L Heart Rate 100 Respiratory 18 Rate Blood Pressure 110/60 O2 Saturation 97 Oxygen O2 Source [] Room air O2 Source [] Room air O2 Source Room air Procedures - Laceration (location) right hand Length in cm: 2 Wound type: Irregular Neurovascular status: Sensory intact, Motor intact Tendon involvement: Tendon intact Anesthesia: Lidocaine 1% with epi Wound Preparation: Hibiclens, Irrigated copiously NS, Wound explored, To the base. No: FB identified Skin layer closure: Nylon, Interrupted, Size #-0 - enter number (5), Sutures - enter # (5) Other: Patient tolerated well, No complications, Neurovascular intact, Dressing applied, Tetanus UTD Complexity: Simple PD MEDICAL DECISION MAKING - ED course Complexity details: considered differential, d/w patient ED course: The patient's presentation is significant for laceration to his right hand after stumbling with his wheeled walker. No other injuries are detected. Treatment in the emergency department included thorough cleaning and suture repair of the wound after instilling local anesthetic. Antibiotic ointment and wound dressing was applied. I discussed with the patient and his caregiver the expected course of injury, timing for suture removal, as well as potentially worrisome signs or symptoms that should prompt reevaluation in the emergency department. Departure - Departure Disposition: 01 Home, Self Care Clinical Impression: Laceration of hand Qualifiers: Encounter type: initial encounter Foreign body presence: without foreign body Laterality: right Qualified Code(s): S61.411A - Laceration without foreign body of right hand, initial encounter Condition: Stable Instructions: ED Laceration Hand Follow-Up: Jaden Lovell MD [Primary Care Provider] - Comments: Keep the wound clean, and apply antibiotic ointment and do dressing daily. Follow-up for suture removal in 10 to 12 days. Return to the emergency department if you develop any sign of infection, or otherwise worsening symptoms. Discharge Date/Time: 06/24/19 10:57
[2019-06-24] MEDS ORDERED: BACITRACIN OINT TOP ONE (10:54)
== END 2019-06-24 10:57 | disposition home or self-care (01) ==
LOC: ED 09:42
DX: S61.411A Laceration without foreign body of right hand, initial encounter (principal); W01.198A Fall on same level from slipping, tripping and stumbling with subsequent striking against other object, initial encounter; Y93.01 Activity, walking, marching and hiking; Y92.009 Unspecified place in unspecified non-institutional (private) residence as the place of occurrence of the external cause; I48.92 Unspecified atrial flutter; Z79.01 Long term (current) use of anticoagulants; I11.0 Hypertensive heart disease with heart failure; I50.9 Heart failure, unspecified
CPT/HCPCS: 12001; 99282; A9270

== ENCOUNTER 2019-07-02 06:53 | Outpatient (CLI) | payer MEDICARE, MEDICAID | END 2019-07-02 06:54 | disposition critical access hospital (66) | LOC: EMS 06:53 | PROVIDERS: ATTEND Surgery | DX: S09.90XA Unspecified injury of head, initial encounter (principal); W06.XXXA Fall from bed, initial encounter; Y92.003 Bedroom of unspecified non-institutional (private) residence as the place of occurrence of the external cause; Z79.01 Long term (current) use of anticoagulants | CPT/HCPCS: A0425; A0428 ==

== ENCOUNTER 2019-07-02 07:19 | Emergency (ER) | payer MEDICARE, MEDICAID ==
[2019-07-02] MEDS ORDERED: SODIUM CHLORIDE 0.9% 1,000 ML IV ONE (07:29)
[2019-07-02] MEDS ORDERED: SODIUM CHLORIDE 0.9% 500 ML IV ONE (07:30)
--- NOTE | 2019-07-02 07:32 | ED Physician Documentation ---
History of Present Illness - Stated complaint Stated Complaint: GLF - Chief complaint Chief Complaint: Trauma Hd/Nk - History obtained from History obtained from: Patient - History of Present Illness Timing: Prior to arrival - Additonal information Additional information: Patient is an 83-year-old male well-known to the ED and this physician often being seen for recurrent falls presenting by EMS for reported fall earlier this morning. Patient reports that he slipped out of bed and does not believe he struck his head or sustained loss of consciousness. Patient denies headache, vision changes, nausea, vomiting, chest pain, difficulty breathing, fever, neck pain, back pain, abdominal pain, urinary or stool changes. Patient is on Xarelto. No other improving or worsening factors noted. Review of Systems Constitutional: denies: Fever Eyes: denies: Loss of vision Cardiac: denies: Chest pain / pressure Respiratory: denies: Dyspnea, Cough GI: denies: Abdominal Pain, Nausea, Vomiting, Diarrhea : denies: Dysuria Skin: denies: Laceration (s) Musculoskeletal: denies: Neck pain, Back pain, Extremity pain PD PAST MEDICAL HISTORY - Past Medical History Past Medical History: Yes Cardiovascular: Congestive heart failure, Hypertension, Coronary artery disease, Atrial flutter, Other Respiratory: None Endocrine/Autoimmune: None Psych: Depression Musculoskeletal: Osteoarthritis - Past Surgical History Past Surgical History: Yes General: Other Ortho: Hip replacement Cardiovascular: CABG, Coronary stent, AAA - Present Medications Home Medications: Ambulatory Orders Medication Instructions Recorded Confirmed Multivit-Minerals/FA/Lycopene [One 1 each PO DAILY 10/31/14 04/10/17 Daily For Men Tablet] PARoxetine HCl [Paroxetine HCl] 40 mg PO QPM 10/31/14 04/10/17 Pravastatin Sodium 80 mg PO QPM 10/31/14 04/10/17 Omeprazole [PriLOSEC] 20 mg PO DAILY #14 capsule 01/06/17 04/10/17 Losartan [Cozaar] 50 mg DAILY 04/10/17 04/10/17 Metoprolol Tartrate 75 mg BID 04/10/17 04/10/17 Potassium Chloride 40 meq PO DAILY 04/10/17 04/10/17 Tamsulosin HCl [Flomax] 1 tab QPM 04/10/17 04/10/17 Azithromycin 250 mg PO DAILY #4 tablet 06/16/19 Diltiazem HCl [Dilt-Xr] 120 mg PO 06/16/19 Liothyronine Sodium 5 mcg PO 06/16/19 06/16/19 Rivaroxaban [Xarelto] 20 mg PO 06/16/19 06/16/19 Torsemide 20 mg PO DAILY 06/16/19 06/16/19 - Allergies Allergies/Adverse Reactions: Allergies Allergy/AdvReac Type Severity Reaction Status Date / Time Lisinopril AdvReac Unknown Unknown Uncoded 07/02/19 07:25 - Social History Does the pt smoke?: No Smoking Status: Never smoker Does the pt drink ETOH?: No Does the pt have substance abuse?: No - Immunizations Immunizations are current?: Yes - POLST Patient has POLST: No PD ED PE NORMAL - Vitals Vital signs reviewed: Yes - General General: Alert and oriented X 3, No acute distress, Well developed/nourished - HEENT HEENT: PERRL, EOMI, Moist mucous membranes, Pharynx benign, Dentition benign. No: Atraumatic (Scattered bruising of variable age, particularly under the eyes. No facial bone tenderness or instability. No epistaxis or evidence of intraoral trauma.) - Neck Neck: No bony TTP - Cardiac Cardiac: RRR, No murmur - Respiratory Respiratory: No respiratory distress, Clear bilaterally - Abdomen Abdomen: Soft, Non tender, Non distended - Back Back: No spinal TTP - Derm Derm: Warm and dry, Other (Scattered bruising of variable age over all extremities and face as stated above) - Extremities Extremities: No deformity, No tenderness to palpate - Neuro Neuro: Alert and oriented X 3, No motor deficit, No sensory deficit - Psych Psych: Normal mood, Normal affect Results - Vitals Vitals: Vital Signs - 24 hr 07/02/19 07/02/19 07:19 10:34 Temperature 35.6 C L Heart Rate 90 89 Respiratory 16 19 Rate Blood Pressure 137/87 H 137/75 H O2 Saturation 95 99 Oxygen O2 Source [With Activity] Room air O2 Source [Without Activity] Room air O2 Source Room air - Labs Labs: Laboratory Tests 07/02/19 07/02/19 07/02/19 07:32 07:32 07:32 WBC 4.9 RBC 2.89 L Hgb 8.4 L Hct 27.8 L MCV 96.2 H MCH 29.1 MCHC 30.2 L RDW 17.0 H Plt Count 150 MPV 9.8 Neut # (Auto) 3.9 Lymph # (Auto) 0.7 L [place] # (Auto) 0.3 Eos # (Auto) 0.1 Baso # (Auto) 0.0 Absolute Nucleated RBC 0.00 Nucleated RBC % 0.0 PT 26.6 H INR 2.4 H APTT 31.7 Sodium 144 Potassium 4.2 Chloride 103 Carbon Dioxide 26 Anion Gap 15.0 H BUN 39 H Creatinine 1.4 H Estimated GFR (MDRD) 48 L Glucose 149 H Calcium 8.9 Total Bilirubin 1.1 H AST 26 ALT 19 Alkaline Phosphatase 97 Total Creatine Kinase 99 Total Protein 7.1 Albumin 3.5 Globulin 3.6 Albumin/Globulin Ratio 1.0 Lipase 27 Urine Color Urine Clarity Urine pH Ur Specific [place] Urine Protein Urine Glucose (UA) Urine Ketones Urine Occult Blood Urine Nitrite Urine Bilirubin Urine Urobilinogen Ur Leukocyte Esterase Ur Microscopic Review Urine Culture Comments 07/02/19 08:44 WBC RBC Hgb Hct MCV MCH MCHC RDW Plt Count MPV Neut # (Auto) Lymph # (Auto) [place] # (Auto) Eos # (Auto) Baso # (Auto) Absolute Nucleated RBC Nucleated RBC % PT INR APTT Sodium Potassium Chloride Carbon Dioxide Anion Gap BUN Creatinine Estimated GFR (MDRD) Glucose Calcium Total Bilirubin AST ALT Alkaline Phosphatase Total Creatine Kinase Total Protein Albumin Globulin Albumin/Globulin Ratio Lipase Urine Color YELLOW Urine Clarity CLEAR Urine pH 6.0 Ur Specific [place] 1.010 Urine Protein NEGATIVE Urine Glucose (UA) NEGATIVE Urine Ketones NEGATIVE Urine Occult Blood NEGATIVE Urine Nitrite NEGATIVE Urine Bilirubin NEGATIVE Urine Urobilinogen 1 (NORMAL) Ur Leukocyte Esterase NEGATIVE Ur Microscopic Review NOT INDICATED Urine Culture Comments NOT INDICATED PD MEDICAL DECISION MAKING - ED course Complexity details: reviewed old records, reviewed results, re-evaluated patient, considered differential, d/w patient ED course: Patient is well-known to the ED and this physician and is often seen for recurrent falls. Patient is on Xarelto and has complicated past medical history. Patient reports slipping out of bed without loss of consciousness. Patient is otherwise asymptomatic and without complaint. Do feel this is likely mechanical in nature as opposed to organic or other medical pathology. Do not have high suspicion for stroke, PE, ACS, VA, unstable angina, aneurysm, dissection, or particular type of infection, but considered. Patient started on small amount of fluid given history of CHF, but did not require medications. Imaging obtained of head, face, neck, which returned unremarkable for acute pathology, But found evidence of likely previous trauma and other chronic changes. Patient provided with these incidental findings. However, do not feel he requires emergent intervention at this time. Screening lab work and urinalysis also obtained which returned relatively unremarkable and similar to previous measurements. Patient did remain in the ED for quite some time while caregiver was contacted and able to come to the ED. Feel the patient is safe to discharge home with caregiver. Discussed supportive cares, return precautions, and follow-up. Patient voiced understanding and is comfortable with discharge plan. Departure - Departure Disposition: 01 Home, Self Care Clinical Impression: Fall Qualifiers: Encounter type: initial encounter Qualified Code(s): W19.XXXA - Unspecified fall, initial encounter Instructions: ED Mechanical Fall Follow-Up: your,doctor [Other] - Within 3 Days Comments: Please continue home medications as previously instructed. Please be aware of any safety issues that can cause you to fall again. Follow-up with primary care physician next 2 to 3 days and discuss incidental findings on imaging, as well as recurrent falls and any other concerns. Return to the ED sooner if experience worsening symptoms or have other concerns.
[2019-07-02 07:42] LABS: BASOPHILS % (AUTO) 0.2 %; EOSINOPHILS # (AUTO) 0.1 10^3/uL (0.0-0.7); HGB - HEMOGLOBIN 8.4 g/dL (14.0-18.0); LYMPHOCYTES # (AUTO) 0.7 10^3/uL (1.5-3.5); LYMPHOCYTES % (AUTO) 13.6 %; MEAN CORPUSCULAR HEMOGLOBIN 29.1 pg (27.0-31.0); MEAN CORPUSCULAR HGB CONC 30.2 g/dL (32.0-36.0); MEAN CORPUSCULAR VOLUME 96.2 fL (80.0-94.0); MEAN PLATELET VOLUME 9.8 fL (7.4-11.4); MONOCYTES # (AUTO) 0.3 10^3/uL (0.0-1.0); MONOCYTES % (AUTO) 5.7 %; NEUTROPHILS # (AUTO) 3.9 10^3/uL (1.5-6.6); NEUTROPHILS % (AUTO) 78.1 %; PLT - PLATELET COUNT 150 10^3/uL (130-450); RED BLOOD COUNT 2.89 10^6/uL (4.70-6.10); WHITE BLOOD COUNT 4.9 x10^3/uL (4.8-10.8)
[2019-07-02 07:47] LABS: INR 2.4 (0.8-1.2); PT - PROTHROMBIN TIME 26.6 secs (9.9-12.6)
[2019-07-02 07:53] LABS: ALBUMIN 3.5 g/dL (3.2-5.5); BILIRUBIN,TOTAL 1.1 mg/dL (0.2-1.0); CALCIUM 8.9 mg/dL (8.5-10.3); CREATININE 1.4 mg/dL (0.6-1.2); TOTAL PROTEIN 7.1 g/dL (6.7-8.2)
[2019-07-02 07:54] LABS: PARTIAL THROMBOPLASTIN TIME 31.7 secs (24.9-33.3)
--- NOTE | 2019-07-02 08:08 | CT Report ---
Reason: fall off bed, no LOC Procedure Date: 07/02/2019 Accession Number: [id number] / [id number] Procedure: CT - HEAD WO CPT Code: FULL RESULT: EXAM: CT HEAD EXAM DATE: 07/02/2019 07:56 AM. CLINICAL HISTORY: Fall off bed, no LOC. COMPARISON: HEAD W/O 06/16/2019 7:31 AM. TECHNIQUE: Multiaxial CT images were obtained from the foramen magnum to the vertex. Reformats: Sagittal and coronal. IV contrast: None. In accordance with CT protocol optimization, one or more of the following dose reduction techniques were utilized for this exam: automated exposure control, adjustment of mA and/or KV based on patient size, or use of iterative reconstructive technique. FINDINGS: Parenchyma: No intraparenchymal hemorrhage. No evidence of mass, midline shift, or CT findings of acute infarction. Cohn-white differentiation is distinct. Diffuse chronic microangiopathic white matter changes are evident. Extraaxial Spaces: Normal for age. No subdural or epidural collections identified. Ventricles: The ventricles and cortical sulci are enlarged, consistent with age-related tissue loss. Sinuses and orbits: Imaged paranasal sinuses, orbits, and mastoids show no significant abnormality. Bones: No evidence of fracture or calvarial defect. Other: None. IMPRESSION: 1. No intracranial hemorrhage, mass-effect, CT evidence of acute infarct, or other acute intracranial abnormality. 2. Generalized age-related cortical atrophic changes. RADIA
--- NOTE | 2019-07-02 08:16 | CT Report ---
Reason: fall off bed, No LOC Procedure Date: 07/02/2019 Accession Number: [id number] / [id number] Procedure: CT - MAXILLOFACIAL WO CPT Code: FULL RESULT: CT MAXILLOFACIAL WITHOUT CONTRAST EXAM DATE: 07/02/2019. INDICATION: 83-year-old male, status post fall off bed with injury to face. TECHNIQUE: Helical scan with reconstruction into 1 mm axial images. In addition, 1 mm sagittal and coronal re-formations have been generated. This examination was performed using a bone algorithm. Images are available in bone and soft tissue windows. In accordance with CT protocol optimization, one or more of the following dose reduction techniques were utilized for this exam: automated exposure control, adjustment of mA and/or KV based on patient size, or use of iterative reconstructive technique. COMPARISON: None. FINDINGS: There is deformity of the nasal bones, consistent with the sequela of remote trauma. No acute nasal fracture is identified. No nasal septal fracture is demonstrated. There is a prominent, concave deformity of the medial wall of the right orbit, consistent with the sequela of old, blowout type fracture. There is prolapse of intraorbital fat through the bone defect. However, no significant prolapse of the medial rectus muscle is identified. There is little if any right-sided enophthalmos. The orbits are otherwise unremarkable. No acute fracture is demonstrated. The midfacial structures appear intact. The mandible appears intact and the mandibular condyles are located bilaterally. No fracture is identified in the imaged upper cervical spine. 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 A small amount of fluid is seen in the inferior, left mastoid air cells. The mastoid air cells are otherwise clear. The middle ear cavities appear clear. The imaged skull base appears intact. There is calcified atherosclerotic plaque at the carotid bifurcations. Calcified plaque is also seen at the carotid siphons. IMPRESSION: 1. There is deformity of the nasal bones, consistent with the sequela of remote trauma. 2. There is a prominent, concave deformity of the medial wall of the right orbit, consistent with the sequela of remote, blowout type fracture. 3. Imaging of the facial bones is otherwise unremarkable. No acute fracture is demonstrated.
--- NOTE | 2019-07-02 08:16 | CT Report ---
Reason: fall off bed, no LOC Procedure Date: 07/02/2019 Accession Number: [id number] / [id number] Procedure: CT - CERVICAL SPINE WO CPT Code: FULL RESULT: EXAM: CT CERVICAL SPINE WITHOUT CONTRAST DATE: 07/02/2019 07:56 AM. HISTORY: Fall off bed, no LOC. COMPARISONS: CERVICAL SPINE W/O 06/16/2019 7:31 AM. TECHNIQUE: Thin-section axial images were acquired of the cervical spine without contrast. Post-processing: Coronal and sagittal reformats. Other: None. In accordance with CT protocol optimization, one or more of the following dose reduction techniques were utilized for this exam: automated exposure control, adjustment of mA and/or KV based on patient size, or use of iterative reconstructive technique. FINDINGS: Alignment: Minimal left convex curvature of the cervical spine is unchanged. There is grade 1 anterolisthesis of 6 on C7 measuring 2 mm, unchanged. Straightening of normal cervical lordosis is unchanged compared to the prior exam. Bones: No fracture or bone lesion. Bones are diffusely demineralized. There are subchondral cystic changes and erosive changes at the odontoid. There is pannus formation surrounding the odontoid. Interspace Levels/Facets: There are multilevel degenerative changes of the cervical spine, similar to the prior exam on 06/16/2019. This appears most advanced at the C3-C4 level with near complete fusion across the intervertebral disk. There is mild multilevel narrowing of the central canal. There is mild to moderate neuroforaminal narrowing at multiple levels. Musculature: Normal. No fatty atrophy. Other: There is extensive atherosclerotic ulceration of the bilateral carotid arteries. The paravertebral and prevertebral soft tissues are otherwise unremarkable. The lung apices are clear. IMPRESSION: 1. No fracture or other acute osseous normality with cervical spine. 2. Degenerative changes of the cervical spine, similar to 06/16/2019. RADIA
[2019-07-02 09:10] LABS: BILIRUBIN,URINE NEGATIVE (NEGATIVE); GLUCOSE, URINE (UA) NEGATIVE (NEGATIVE); KETONES,URINE (UA) NEGATIVE (NEGATIVE); LEUKOCYTE ESTERASE, URINE NEGATIVE (NEGATIVE); NITRITE,URINE NEGATIVE (NEGATIVE); OCCULT BLOOD,URINE NEGATIVE (NEGATIVE); PROTEIN,URINE NEGATIVE (NEGATIVE); UROBILINOGEN,URINE 1 (NORMAL) E.U./dL (NORMAL)
[2019-07-02 09:18] LABS: CLARITY,URINE CLEAR (CLEAR)
[2019-07-02 10:35] VITALS: BP 137/75
== END 2019-07-02 10:43 | disposition home or self-care (01) ==
LOC: EDSEX → EDBD → EDUNIT# → ED 07:19
DX: S00.83XA Contusion of other part of head, initial encounter (principal); S80.12XA Contusion of left lower leg, initial encounter; S80.11XA Contusion of right lower leg, initial encounter; S40.022A Contusion of left upper arm, initial encounter; S40.021A Contusion of right upper arm, initial encounter; W06.XXXA Fall from bed, initial encounter; Z91.81 History of falling; M50.31 Other cervical disc degeneration, high cervical region; M48.02 Spinal stenosis, cervical region; I48.92 Unspecified atrial flutter; Z79.01 Long term (current) use of anticoagulants; I11.0 Hypertensive heart disease with heart failure; I50.9 Heart failure, unspecified
CPT/HCPCS: 36415; 70450; 70486; 72125; 80053; 81001; 81003; 82550; 83690; 85025; 85610; 85730; 87086; 96360; 99282

== ENCOUNTER 2019-07-08 15:45 | Emergency (ER) | payer MEDICARE, MEDICAID ==
--- NOTE | 2019-07-08 16:22 | ED Physician Documentation ---
PD HPI DYSPNEA - Stated complaint Stated Complaint: IRREGULAR BLOOD PRESSURE - Chief complaint Chief Complaint: Cardiac - History obtained from History obtained from: Patient, Caregiver - History of Present Illness Timing - onset: Today (83-year-old gentleman with history of congestive heart failure, frequent falls, hypertension, remote coronary bypass presents with shortness of breath, orthopnea, and lightheadedness that is positional starting today. He denied chest pain to the nurse but admits to chest pressure to me. He has calf pain and pedal edema but that has been going on for about a month since some falls at the beginning of May. He has had fallen twice recently and hit his head, CTs at both times were negative. He has no headache.) Review of Systems Ten Systems: 10 systems reviewed and negative Constitutional: reports: Fatigue. denies: Fever, Chills Nose: denies: Rhinorrhea / runny nose, Congestion Throat: denies: Sore throat Cardiac: reports: Chest pain / pressure, Pedal edema, Calf pain. denies: Palpitations Respiratory: reports: Dyspnea, Wheezing. denies: Cough GI: reports: Constipation (chronic). denies: Abdominal Pain, Nausea, Vomiting PD PAST MEDICAL HISTORY - Past Medical History Cardiovascular: Congestive heart failure, Hypertension, Coronary artery disease, Atrial flutter, Other Respiratory: None Endocrine/Autoimmune: None Psych: Depression Musculoskeletal: Osteoarthritis - Past Surgical History Past Surgical History: Yes General: Other Ortho: Hip replacement Cardiovascular: CABG, Coronary stent, AAA - Present Medications Home Medications: Ambulatory Orders Medication Instructions Recorded Confirmed Multivit-Minerals/FA/Lycopene [One 1 each PO DAILY 10/31/14 04/10/17 Daily For Men Tablet] PARoxetine HCl [Paroxetine HCl] 40 mg PO QPM 10/31/14 04/10/17 Pravastatin Sodium 80 mg PO QPM 10/31/14 04/10/17 Omeprazole [PriLOSEC] 20 mg PO DAILY #14 capsule 01/06/17 04/10/17 Losartan [Cozaar] 50 mg DAILY 04/10/17 04/10/17 Metoprolol Tartrate 75 mg BID 04/10/17 04/10/17 Potassium Chloride 40 meq PO DAILY 04/10/17 04/10/17 Tamsulosin HCl [Flomax] 1 tab QPM 04/10/17 04/10/17 Azithromycin 250 mg PO DAILY #4 tablet 06/16/19 Diltiazem HCl [Dilt-Xr] 120 mg PO 06/16/19 Liothyronine Sodium 5 mcg PO 06/16/19 06/16/19 Rivaroxaban [Xarelto] 20 mg PO 06/16/19 06/16/19 Torsemide 20 mg PO DAILY 06/16/19 06/16/19 Hydrocodone/Acetaminophen 1 - 2 each PO Q6H PRN #7 tablet 07/08/19 [Hydrocodon-Acetaminophen 5-325] - Allergies Allergies/Adverse Reactions: Allergies Allergy/AdvReac Type Severity Reaction Status Date / Time Lisinopril AdvReac Unknown Unknown Uncoded 07/02/19 07:25 - Social History Does the pt smoke?: No Smoking Status: Never smoker Does the pt drink ETOH?: No Does the pt have substance abuse?: No - Immunizations Immunizations are current?: Yes - POLST Patient has POLST: No PD ED PE NORMAL - Vitals Vital signs reviewed: Yes - General General: Alert and oriented X 3, No acute distress - HEENT HEENT: Other (small pupils) - Neck Neck: Supple, no meningeal sign, No bony TTP - Cardiac Cardiac: RRR, No murmur - Respiratory Respiratory: Other (wheezy at bases) - Abdomen Abdomen: Soft, Non tender - Back Back: No CVA TTP, No spinal TTP - Derm Derm: Normal color, Warm and dry - Extremities Extremities: Other (Moderate bilateral pitting pedal edema without cellulitis. He has some healing scrapes to the shins.) - Neuro Neuro: Alert and oriented X 3, No motor deficit, No sensory deficit, Normal speech, Other (He has ecchymoses under both eyes, the one on the right per the caregivers from the fall Last week and the one on the left from the fall last month.) Results - Vitals Vitals: Vital Signs - 24 hr 07/08/19 07/08/19 07/08/19 15:50 16:17 18:38 Temperature 36.3 C L Heart Rate 60 62 Heart Rate [ 63 Sitting] Heart Rate [ 67 Standing] Heart Rate [ 68 Supine] Respiratory 20 14 Rate Blood Pressure 96/54 L 111/55 L Blood Pressure 130/53 L [Sitting] Blood Pressure 104/61 [Standing] Blood Pressure 123/69 [Supine] O2 Saturation 94 95 Oxygen O2 Source [With Activity] Room air O2 Source [Without Activity] Room air O2 Source Room air - EKG (time done) 1605 Rate: Rate (enter#) (61) Rhythm: Other (Is pretty regular, I think it is sinus but there are some P waves AC and it looks like there is a very long AK interval, it could be atrial fibrillation.) Intervals: RBBB Ischemia: Normal ST segments Computer interpretation: Agree with computer - Labs Labs: Laboratory Tests 07/08/19 07/08/19 07/08/19 16:27 16:27 16:27 WBC 5.8 RBC 2.71 L Hgb 7.8 L Hct 26.1 L MCV 96.3 H MCH 28.8 MCHC 29.9 L RDW 17.8 H Plt Count 158 MPV 10.1 Neut # (Auto) 4.0 Lymph # (Auto) 1.1 L [place] # (Auto) 0.5 Eos # (Auto) 0.1 Baso # (Auto) 0.0 Absolute Nucleated RBC 0.08 Nucleated RBC % 1.4 Sodium 138 Potassium 5.6 H Chloride 100 L Carbon Dioxide 25 Anion Gap 13.0 BUN 45 H Creatinine 2.0 H Estimated GFR (MDRD) 32 L Glucose 126 H Calcium 8.8 Total Bilirubin 1.6 H AST 29 ALT 19 Alkaline Phosphatase 89 Troponin I High Sens B-Natriuretic Peptide 720 H Total Protein 7.0 Albumin 3.4 Globulin 3.6 Albumin/Globulin Ratio 0.9 L Lipase 28 Blood Type Antibody Screen 07/08/19 07/08/19 16:27 16:27 WBC RBC Hgb Hct MCV MCH MCHC RDW Plt Count MPV Neut # (Auto) Lymph # (Auto) [place] # (Auto) Eos # (Auto) Baso # (Auto) Absolute Nucleated RBC Nucleated RBC % Sodium Potassium Chloride Carbon Dioxide Anion Gap BUN Creatinine Estimated GFR (MDRD) Glucose Calcium Total Bilirubin AST ALT Alkaline Phosphatase Troponin I High Sens 13.9 B-Natriuretic Peptide Total Protein Albumin Globulin Albumin/Globulin Ratio Lipase Blood Type O POSITIVE Antibody Screen NEGATIVE PD MEDICAL DECISION MAKING - ED course ED course: This is an 83-year-old gentleman who presents with generalized weakness and some borderline hypotension. He had a recent increase in his diuretics. Otherwise no recent medication changes. His lab work looks like he is having some increasing prerenal azotemia probably causing symptoms and he was administered 500 mL of normal saline with improvement and negative orthostatics after that. He is anticoagulated, he has anemia but that is stable.He was also having a lot of leg pain, and a pattern consistent with kind of restless legs and he was given some medication for this as well. Departure - Departure Disposition: 01 Home, Self Care Clinical Impression: Dehydration CAD (coronary artery disease) Qualifiers: Coronary Disease-Associated Artery/Lesion type: unspecified vessel or lesion type [place] vs. transplanted heart: [place] heart Associated angina: without angina Qualified Code(s): I25.10 - Atherosclerotic heart disease of [place] coronary artery without angina pectoris Atrial flutter Qualifiers: Atrial flutter type: unspecified Qualified Code(s): I48.92 - Unspecified atrial flutter Anemia Qualifiers: Anemia type: unspecified type Qualified Code(s): D64.9 - Anemia, unspecified Condition: Good Record reviewed to determine appropriate education?: Yes Instructions: Atrial Fibrillation Dc, ED Dehydration Prescriptions: Hydrocodone/Acetaminophen [Hydrocodon-Acetaminophen 5-325] 1 - 2 each PO Q6H PRN #7 tablet PRN Reason: pain Comments: It appears that you became mildly dehydrated today, I would go back to 1 pill of the torsemide a day pending follow-up with your doctor which should happen tomorrow or early next week. Return for any new or worsening symptoms.
[2019-07-08 16:35] LABS: BASOPHILS % (AUTO) 0.2 %; EOSINOPHILS # (AUTO) 0.1 10^3/uL (0.0-0.7); EOSINOPHILS % (AUTO) 1.2 %; HGB - HEMOGLOBIN 7.8 g/dL (14.0-18.0); LYMPHOCYTES # (AUTO) 1.1 10^3/uL (1.5-3.5); LYMPHOCYTES % (AUTO) 18.9 %; MEAN CORPUSCULAR HEMOGLOBIN 28.8 pg (27.0-31.0); MEAN CORPUSCULAR HGB CONC 29.9 g/dL (32.0-36.0); MEAN CORPUSCULAR VOLUME 96.3 fL (80.0-94.0); MEAN PLATELET VOLUME 10.1 fL (7.4-11.4); MONOCYTES # (AUTO) 0.5 10^3/uL (0.0-1.0); MONOCYTES % (AUTO) 9.3 %; NEUTROPHILS % (AUTO) 69.7 %; PLT - PLATELET COUNT 158 10^3/uL (130-450); RED BLOOD COUNT 2.71 10^6/uL (4.70-6.10); RED CELL DISTRIBUTION WIDTH 17.8 % (12.0-15.0); WHITE BLOOD COUNT 5.8 x10^3/uL (4.8-10.8)
[2019-07-08 16:49] LABS: ALBUMIN 3.4 g/dL (3.2-5.5); ALBUMIN/GLOBULIN RATIO 0.9 (1.0-2.2); BILIRUBIN,TOTAL 1.6 mg/dL (0.2-1.0); CALCIUM 8.8 mg/dL (8.5-10.3)
[2019-07-08] MEDS ORDERED: SODIUM CHLORIDE 0.9% 500 ML IV ONE (17:06)
--- NOTE | 2019-07-08 17:16 | XRAY Report ---
Reason: dyspnea Procedure Date: 07/08/2019 Accession Number: [id number] / [id number] Procedure: XR - Chest 2 View X-Ray CPT Code: 44917 FULL RESULT: EXAM: CHEST RADIOGRAPHY EXAM DATE: 07/08/2019 04:45 PM. CLINICAL HISTORY: Dyspnea. COMPARISON: CHEST 1 VIEW 06/16/2019 7:31 AM CHEST 1 VIEW 05/25/2019 1:49 PM CHEST 1 VIEW 04/10/2017 1:44 PM. TECHNIQUE: 2 views. FINDINGS: Lungs/Pleura: Small left effusion/pleural thickening and adjoining lung opacification. No pneumothorax. Stable pulmonary vascular congestion. Mediastinum: Mildly enlarged cardiac silhouette. Other: Median sternotomy wires and surgical chula. IMPRESSION: Stable small left effusion/pleural thickening and adjoining lung opacification. Stable pulmonary vascular congestion and enlarged cardiac silhouette. [facility]
[2019-07-08] MEDS ORDERED: HYDROcod/ACETAM 5/325 MG TABLET PO STA (18:53)
[2019-07-08 18:55] VITALS: BP 104/61
== END 2019-07-08 19:11 | disposition home or self-care (01) ==
LOC: ED 15:45
DX: E86.0 Dehydration (principal); I25.10 Atherosclerotic heart disease of native coronary artery without angina pectoris; I48.92 Unspecified atrial flutter; D64.9 Anemia, unspecified; M79.669 Pain in unspecified lower leg; I95.9 Hypotension, unspecified; I10 Essential (primary) hypertension; Z79.01 Long term (current) use of anticoagulants
CPT/HCPCS: 36415; 71046; 80053; 83690; 83880; 84484; 85025; 86850; 86900; 86901; 93005; 96360; 99284

== ENCOUNTER 2019-07-09 10:18 | Outpatient (CLI) | payer MEDICARE, MEDICAID | END 2019-07-09 10:19 | disposition short-term general hospital (02) | LOC: EMS 10:18 | PROVIDERS: ATTEND Surgery | DX: I46.9 Cardiac arrest, cause unspecified (principal) | CPT/HCPCS: A0425; A0433 ==